=== PATIENT | male | born 1980 | race Caucasian/White ===

== ENCOUNTER 2016-03-06 15:48 | Outpatient (RCR) | payer MEDICAID, SELFPAY ==
[~2016-03-06 15:48] MED LIST: SUBO8TA PO
== END 2016-03-11 | disposition home or self-care (01) ==
LOC: M OUTALCOH 15:48
PROVIDERS: ATTEND Psychiatry & Neurology Psychiatry
DX: F10.20 Alcohol dependence, uncomplicated (principal); F12.20 Cannabis dependence, uncomplicated; F11.20 Opioid dependence, uncomplicated

== ENCOUNTER 2016-04-02 16:00 | Outpatient (RCR) | payer MEDICAID, SELFPAY | END 2016-04-08 | LOC: M OUTALCOH 16:00 | PROVIDERS: ATTEND Psychiatry & Neurology Psychiatry | DX: F10.20 Alcohol dependence, uncomplicated (principal); F12.20 Cannabis dependence, uncomplicated; F11.20 Opioid dependence, uncomplicated ==

== ENCOUNTER 2016-05-05 16:00 | Outpatient (RCR) | payer MEDICAID, SELFPAY | END 2016-05-09 | LOC: M OUTALCOH 16:00 | PROVIDERS: ATTEND Psychiatry & Neurology Psychiatry | DX: F10.20 Alcohol dependence, uncomplicated (principal); F12.20 Cannabis dependence, uncomplicated; F11.20 Opioid dependence, uncomplicated ==

== ENCOUNTER 2016-06-04 08:30 | Outpatient (RCR) | payer OTHER | END 2016-06-08 | LOC: M OUTALCOH 08:30 | PROVIDERS: ATTEND Psychiatry & Neurology Psychiatry | DX: F10.20 Alcohol dependence, uncomplicated (principal); F12.20 Cannabis dependence, uncomplicated; F11.20 Opioid dependence, uncomplicated ==

== ENCOUNTER 2016-06-26 14:00 | Outpatient (RCR) | payer MEDICAID, OTHER | END 2016-07-09 | LOC: M OUTALCOH 14:00 | PROVIDERS: ATTEND Psychiatry & Neurology Psychiatry | DX: F10.20 Alcohol dependence, uncomplicated (principal); F12.20 Cannabis dependence, uncomplicated; F11.20 Opioid dependence, uncomplicated ==

== ENCOUNTER 2016-07-18 13:00 | Outpatient (RCR) | payer MEDICAID | END 2016-08-08 | disposition home or self-care (01) | LOC: M OUTALCOH 13:00 | PROVIDERS: ATTEND Psychiatry & Neurology Psychiatry | DX: F10.20 Alcohol dependence, uncomplicated (principal); F12.20 Cannabis dependence, uncomplicated; F11.20 Opioid dependence, uncomplicated ==

== ENCOUNTER 2016-08-29 16:00 | Outpatient (RCR) | payer MEDICAID | END 2016-09-08 | LOC: M OUTALCOH 16:00 | PROVIDERS: ATTEND Psychiatry & Neurology Psychiatry | DX: F10.20 Alcohol dependence, uncomplicated (principal); F12.20 Cannabis dependence, uncomplicated; F11.20 Opioid dependence, uncomplicated ==

== ENCOUNTER 2016-10-03 16:00 | Outpatient (RCR) | payer MEDICAID | END 2016-10-09 | LOC: M OUTALCOH 16:00 | PROVIDERS: ATTEND Psychiatry & Neurology Psychiatry | DX: F10.20 Alcohol dependence, uncomplicated (principal); F12.20 Cannabis dependence, uncomplicated; F11.20 Opioid dependence, uncomplicated ==

== ENCOUNTER 2016-10-22 14:10 | Outpatient (RCR) | payer MEDICAID | END 2016-11-08 | LOC: M OUTALCOH 14:10 | PROVIDERS: ATTEND Psychiatry & Neurology Psychiatry | DX: F10.20 Alcohol dependence, uncomplicated (principal); F12.20 Cannabis dependence, uncomplicated; F11.20 Opioid dependence, uncomplicated ==

== ENCOUNTER 2016-12-17 16:31 | Outpatient (RCR) | payer MEDICAID | END 2017-01-08 | LOC: M OUTALCOH 16:31 | DX: F10.20 Alcohol dependence, uncomplicated (principal); F12.20 Cannabis dependence, uncomplicated; F11.20 Opioid dependence, uncomplicated ==

== ENCOUNTER 2017-02-05 15:26 | Outpatient (RCR) | payer MEDICAID | END 2017-02-08 | LOC: M OUTALCOH 15:26 | DX: F10.20 Alcohol dependence, uncomplicated (principal); F12.20 Cannabis dependence, uncomplicated; F11.20 Opioid dependence, uncomplicated ==

== ENCOUNTER 2017-03-25 15:57 | Emergency (ER) | payer OTHER, MEDICAID | END 2017-03-25 17:17 | disposition home or self-care (01) | LOC: M ED 15:57 | DX: K02.9 Dental caries, unspecified (principal) | CPT/HCPCS: 99283 ==

== ENCOUNTER 2017-03-29 14:37 | Emergency (ER) | payer OTHER, MEDICAID | END 2017-03-29 17:30 | disposition home or self-care (01) | LOC: M ED 14:37 | DX: K08.9 Disorder of teeth and supporting structures, unspecified (principal); Z79.2 Long term (current) use of antibiotics | CPT/HCPCS: 99282 ==

== ENCOUNTER → 2022-09-15 | Outpatient (REF) | payer OTHER, MEDICAID ==
[~2022-09-15] MED LIST changes: +AUGM875T28 PO; +IBUP-1114 PO; +IBUP80TA PO; +TRAM50TA2 PO; +TYLE325T5 PO; +ULTR50TA8 PO
[2022-09-15 12:39] LABS: THYROID STIMULATING HORMONE 13.507 uIU/ML (0.55-4.78)
[2022-09-15 12:40] LABS: ALBUMIN 3.8 G/DL (3.2-5.2); ALKALINE PHOSPHATASE 63 U/L (46-116); ALT/SGPT 22 U/L (7.0-40); AST/SGOT 19 U/L (<34); BILIRUBIN,TOTAL 0.2 MG/DL (0.3-1.2); BLOOD UREA NITROGEN 16 MG/DL (9-23); CALCIUM LEVEL 9.1 MG/DL (8.5-10.1); CARBON DIOXIDE LEVEL 29 MMOL/L (20-31); CHLORIDE LEVEL 104 MMOL/L (98-107); CHOLESTEROL LEVEL 188 MG/DL (<200); CHOLESTEROL RISK RATIO 5.34 (<5); CREATININE FOR GFR 0.91 MG/DL (0.70-1.30); GLOMERULAR FILTRATION RATE > 60.0 (>60); GLUCOSE, FASTING 76 MG/DL (60-100); HDL CHOLESTEROL 35.2 MG/DL (>40); NON-HDL-C 152.8 MG/DL; POTASSIUM SERUM 4.3 MMOL/L (3.5-5.1); SODIUM LEVEL 139 MMOL/L (136-145); TRIGLYCERIDES LEVEL 417 MG/DL (<150)
[2022-09-15 13:04] LABS: HIV 1&2 SCREEN NEGATIVE (NEGATIVE)
== END ==
LOC: M LAB REF 11:18
PROVIDERS: ATTEND Family Medicine Addiction Medicine
DX: E66.9 Obesity, unspecified (principal)

== ENCOUNTER → 2023-05-25 | Outpatient (REF) | payer OTHER, MEDICAID | LOC: M LAB REF 17:20 | PROVIDERS: ATTEND Family Medicine Addiction Medicine | DX: E03.9 Hypothyroidism, unspecified (principal) ==

== ENCOUNTER → 2023-10-21 | Outpatient (REF) | payer OTHER, MEDICAID ==
[2023-10-21 13:38] LABS: THYROID STIMULATING HORMONE 45.839 uIU/ML (0.55-4.78)
[2023-10-21 13:41] LABS: ALBUMIN 4.3 G/DL (3.2-5.2); ALKALINE PHOSPHATASE 54 U/L (46-116); ALT/SGPT 33 U/L (7.0-40); AST/SGOT 38 U/L (<34); BILIRUBIN,TOTAL 0.7 MG/DL (0.3-1.2); BLOOD UREA NITROGEN 14 MG/DL (9-23); CALCIUM LEVEL 9.7 MG/DL (8.5-10.1); CARBON DIOXIDE LEVEL 29 MMOL/L (20-31); CHLORIDE LEVEL 106 MMOL/L (98-107); CHOLESTEROL LEVEL 232 MG/DL (<200); CHOLESTEROL RISK RATIO 4.93 (<5); CREATININE FOR GFR 0.83 MG/DL (0.70-1.30); GLOMERULAR FILTRATION RATE > 60.0 (>60); GLUCOSE, FASTING 83 MG/DL (60-100); LDL CHOLESTEROL 147.8 MG/DL (<100); POTASSIUM SERUM 4.7 MMOL/L (3.5-5.1); SODIUM LEVEL 138 MMOL/L (136-145); TRIGLYCERIDES LEVEL 186 MG/DL (<150)
== END ==
LOC: M LAB REF 12:40
PROVIDERS: ATTEND Family Medicine Addiction Medicine
DX: E03.9 Hypothyroidism, unspecified (principal)

== ENCOUNTER → 2024-01-04 | Outpatient (REF) | payer OTHER, MEDICAID | LOC: M LAB REF 11:25 | PROVIDERS: ATTEND Family Medicine Addiction Medicine | DX: E03.9 Hypothyroidism, unspecified (principal) ==

== ENCOUNTER → 2025-01-19 | Outpatient (REF) | payer OTHER, BC ==
[2025-01-19 14:40] LABS: ALT/SGPT 31 U/L (7.0-40); AST/SGOT 37 U/L (<34); CALCIUM LEVEL 9.4 MG/DL (8.5-10.1); CARBON DIOXIDE LEVEL 33 MMOL/L (20-31); CHLORIDE LEVEL 101 MMOL/L (98-107); CHOLESTEROL LEVEL 201 MG/DL (<200); CHOLESTEROL RISK RATIO 4.78 (<5); CREATININE FOR GFR 0.87 MG/DL (0.70-1.30); GLOMERULAR FILTRATION RATE > 90.0 (>60); LDL CHOLESTEROL 126.8 MG/DL (<100); NON-HDL-C 159.0 MG/DL; POTASSIUM SERUM 4.9 MMOL/L (3.5-5.1); SODIUM LEVEL 141 MMOL/L (136-145); TRIGLYCERIDES LEVEL 161 MG/DL (<150)
== END ==
LOC: M LAB REF 13:46
PROVIDERS: ATTEND Family Medicine Addiction Medicine
DX: E03.9 Hypothyroidism, unspecified (principal)